=== PATIENT | male | born 2000 | race Two or more races ===

== ENCOUNTER 2024-08-27 20:03 | Emergency (ER) | payer OTHER ==
[~2024-08-27] VITALS: Ht 177.8 cm; Wt 68.0 kg
[2024-08-27] MEDS ORDERED: CLINDAMYCIN PHOSPHATE 150 MG/ML (600mg) IM STA (20:27)
[2024-08-27] MEDS ORDERED: CLINDAMYCIN PHOSPHATE 150 MG/ML (300mg) ONE (20:45)
== END 2024-08-27 20:56 | disposition home or self-care (01) ==
LOC: ER 20:05
DX: L02.12 Furuncle of neck (principal)

== ENCOUNTER 2024-09-22 11:52 | Emergency (ER) | payer OTHER ==
[~2024-09-22] VITALS: Ht 177.8 cm; Wt 68.0 kg
[2024-09-22] MEDS ORDERED: LACTOBACILLUS ACIDOPHILUS 1 CAP CAP PO ONE (15:30)
[2024-09-22 15:40] LABS: HEMATOCRIT 42.7 % (39.0-48.0); HEMOGLOBIN 14.7 g/dL (13-16.00); MEAN CELL VOLUME 81.7 fL (80.0-100.00); MEAN CORPUSCULAR HGB CONC 34.3 g/dl (32.0-36.0); PLATELET COUNT 266 K/uL (150-450); RED BLOOD COUNT 5.23 M/uL (4.00-6.00); RED CELL DISTRIBUTION WIDTH 14.4 % (11.5-14.5)
[2024-09-22 16:09] LABS: ALBUMIN 3.9 gm/dL (3.4-5.0); BILIRUBIN TOTAL 0.6 mg/dL (0.3-1.2); CALCIUM 9.3 mg/dL (8.5-10.1); CREATININE SERUM 0.97 mg/dL (0.70-1.30); GFR 96.78; GLOBULINA 4.5 G/DL (2.4-3.5); POTASSIUM 4.15 mEq/L (3.5-5.1); TOTAL PROTEIN 8.4 gm/dL (6.4-8.2)
[2024-09-22] MEDS ORDERED: INTESTINEX680 M1 PO (16:38)
== END 2024-09-22 16:58 | disposition home or self-care (01) ==
LOC: ER 11:55
DX: B49 Unspecified mycosis (principal); R19.7 Diarrhea, unspecified; R53.81 Other malaise